=== PATIENT | female | born 1995 | race African-American/Black ===

== ENCOUNTER 2019-01-31 17:21 | Emergency (ER) | payer BC ==
[~2019-01-31] VITALS: Ht 162.6 cm; Wt 113.4 kg
[2019-01-31 17:59] LABS: BILIRUBIN,URINE NEGATIVE (NEG); CLARITY,URINE CLEAR; COLOR,URINE YELLOW; NITRITE,URINE NEGATIVE (NEG); PROTEIN,URINE NEGATIVE (NEG-TRACE)
[2019-01-31] MEDS ORDERED: IV NORMAL SALINE 1000ML BAG 1,000 ML IV SCH (18:00)
[2019-01-31 18:05] LABS: SQUAMOUS EPITHELIAL CELL,UR MANY /LPF
[2019-01-31 18:06] LABS: BACTERIA,URINE MANY /HPF (0-FEW); RBC,URINE OCC /HPF (0-2); WBC,URINE 20-40 /HPF (0-4)
--- NOTE | 2019-01-31 18:10 | PHYS DOC ---
Past Medical History Past Medical History: No Pertinent History (TRA CORDERO APRN) Past Surgical History: No Surgical History (TRA CORDERO APRN) Additional Information: nonsmoker (TRA CORDERO APRN) Adult General Chief Complaint Chief Complaint: FLANK PAIN HPI HPI Patient is a 23-year-old female who presents with left lower quadrant abdominal pain and ongoing for 3 days. The patient had a similar pain in high school when they told her that her ovary was enlarged. The patient rates her pain as 8 out of 10 and rates it as a pressure. Denies any associated symptoms. Nothing at home has made this pain better or worse. Not taking any medications for the pain at home. (TRA CORDERO APRN) Review of Systems Review of Systems Constitutional: Denies fever or chills [] HENT: Denies nasal congestion or sore throat [] Respiratory: Denies cough or shortness of breath [] Cardiovascular: Denies chest pain or syncope. GI: Denies abdominal pain, nausea, vomiting, bloody stools or diarrhea [] : Denies vaginal bleeding, dysuria, hematuria, or frequency [] Musculoskeletal: Denies back pain or joint pain [] Integument: Denies rash or skin lesions [] Neurologic: Denies headache, focal weakness or sensory changes [] Endocrine: Denies polyuria or polydipsia [] Complete systems were reviewed and found to be within normal limits, except as documented in this note. (TRA CORDERO APRN) Current Medications Current Medications Current Medications Medications (Trade) Dose Ordered Sig/Fiorella Start Time Stop Time Status Last Admin Dose Admin Azithromycin (Zithromax) 1,000 mg 1X ONCE 01/31/19 21:00 01/31/19 21:01 DC 01/31/19 21:01 1,000 MG Ceftriaxone Sodium (Rocephin Im) 250 mg 1X ONCE 01/31/19 21:00 01/31/19 21:01 DC 01/31/19 21:03 250 MG Morphine Sulfate (Morphine Sulfate) 4 mg 1X ONCE 01/31/19 18:15 01/31/19 18:16 DC 01/31/19 18:41 4 MG Ondansetron HCl (Zofran) 4 mg 1X ONCE 01/31/19 18:15 01/31/19 18:16 DC 01/31/19 18:40 4 MG Sodium Chloride 1,000 ml @ 1,000 mls/hr Q1H 01/31/19 18:00 01/31/19 18:59 DC 01/31/19 18:40 1,000 MLS/HR (TRA CONTRERAS DO) Allergies Allergies Allergies Coded Allergies Type Severity Reaction Last Updated Verified No Known Drug Allergies 01/31/19 No (TRA CONTRERAS DO) Physical Exam Physical Exam Constitutional: Well developed, well nourished, no acute distress, non-toxic appearance. [] HENT: Normocephalic, atraumatic, oropharynx moist, no oral exudates, nose normal. [] Eyes: PERRLA, EOMI, conjunctiva normal, no discharge. [] Neck: No tenderness, supple, no stridor. [] Cardiovascular:Heart rate regular rhythm, no murmur [] Lungs & Thorax: Bilateral breath sounds clear to auscultation [] Abdomen: Bowel sounds normal, soft, Tenderness to LLQ, no masses, no pulsatile masses. [] Skin: Warm, dry, no erythema, no rash. [] Back: No tenderness, no CVA tenderness. [] Extremities: No tenderness, no cyanosis, no clubbing, ROM intact, no edema. [] Neurologic: Alert and oriented X 3, normal motor function, normal sensory function, no focal deficits noted. [] Psychologic: Affect normal, judgement normal, mood normal. [] (TRA CORDERO APRN) Current Patient Data Vital Signs Vital Signs Date Time Temp Pulse Resp B/P (MAP) Pulse Ox O2 Delivery O2 Flow Rate FiO2 01/31/19 19:39 94 16 138/62 (87) 98 Room Air 01/31/19 17:25 98.5 98.5 (TRA CONTRERAS DO) Lab Values Laboratory Tests Test 01/31/19 17:20 01/31/19 17:34 01/31/19 18:35 Urine Collection Type Unknown Urine Color Yellow Urine Clarity Clear Urine pH 7.0 Urine Specific Buna >=1.030 Urine Protein Negative mg/dL (NEG-TRACE) Urine Glucose (UA) Negative mg/dL (NEG) Urine Ketones (Stick) Trace mg/dL (NEG) Urine Blood Negative (NEG) Urine Nitrite Negative (NEG) Urine Bilirubin Negative (NEG) Urine Urobilinogen Dipstick 1.0 mg/dL (0.2 mg/dL) Urine Leukocyte Esterase Moderate (NEG) Urine RBC Occ /HPF (0-2) Urine WBC 20-40 /HPF (0-4) Urine Squamous Epithelial Cells Many /LPF Urine Bacteria Many /HPF (0-FEW) Urine Mucus Marked /LPF POC Urine HCG, Qualitative Hcg negative (Negative) White Blood Count 10.2 x10^3/uL (4.0-11.0) Red Blood Count 5.49 x10^6/uL (3.50-5.40) H Hemoglobin 12.7 g/dL (12.0-15.5) Hematocrit 39.2 % (36.0-47.0) Mean Corpuscular Volume 71 fL (79-100) L Mean Corpuscular Hemoglobin 23 pg (25-35) L Mean Corpuscular Hemoglobin Concent 32 g/dL (31-37) Red Cell Distribution Width 15.3 % (11.5-14.5) H Platelet Count 274 x10^3/uL (140-400) Neutrophils (%) (Auto) 65 % (31-73) Lymphocytes (%) (Auto) 25 % (24-48) Monocytes (%) (Auto) 9 % (0-9) Eosinophils (%) (Auto) 2 % (0-3) Basophils (%) (Auto) 0 % (0-3) Neutrophils # (Auto) 6.6 x10^3uL (1.8-7.7) Lymphocytes # (Auto) 2.5 x10^3/uL (1.0-4.8) Monocytes # (Auto) 0.9 x10^3/uL (0.0-1.1) Eosinophils # (Auto) 0.2 x10^3/uL (0.0-0.7) Basophils # (Auto) 0.0 x10^3/uL (0.0-0.2) Platelet Estimate Adequate (ADEQUATE) Hypochromasia Slight Microcytosis Slight Sodium Level 138 mmol/L (136-145) Potassium Level 4.0 mmol/L (3.5-5.1) Chloride Level 102 mmol/L (98-107) Carbon Dioxide Level 26 mmol/L (21-32) Anion Gap 10 (6-14) Blood Urea Nitrogen 12 mg/dL (7-20) Creatinine 0.8 mg/dL (0.6-1.0) Estimated GFR (Cockcroft-Gault) 106.6 BUN/Creatinine Ratio 15 (6-20) Glucose Level 92 mg/dL (70-99) Calcium Level 9.3 mg/dL (8.5-10.1) Total Bilirubin 0.2 mg/dL (0.2-1.0) Aspartate Amino Transferase (AST) 16 U/L (15-37) Alanine Aminotransferase (ALT) 21 U/L (14-59) Alkaline Phosphatase 76 U/L (46-116) Total Protein 7.0 g/dL (6.4-8.2) Albumin 3.5 g/dL (3.4-5.0) Albumin/Globulin Ratio 1.0 (1.0-1.7) Lipase 158 U/L (73-393) Laboratory Tests 01/31/19 18:35 Laboratory Tests 01/31/19 18:35 Microbiology 01/31/19 Wet Prep - Final, Complete (TRA CONTRERAS DO) EKG EKG [] (TRA CORDERO APRN) Radiology/Procedures Radiology/Procedures []PATIENT: SONIA COMBSOUNT: [id number]#: [id number] : 1995 LOCATION: ER AGE: 23 SEX: F EXAM STATUS: REG ER ORD. PHYSICIAN: TRA CORDERO APRN REASON: r/o ovarian torsion PROCEDURE: PELVIS COMPLETE Pelvic ultrasound: Reason for examination: Left pelvic pain. Evaluate for ovarian torsion. Transvaginal ultrasound examination was performed. Examination is compromised by patient's large body habitus. Uterus measures 7.6 x 5.2 x 3.8 cm in greatest dimension and shows no uterine masses. Endometrium is not abnormally thickened at 1.2 cm. Nabothian cysts are seen in the cervix. The right ovary measures 4.2 x 2.6 x 2.2 cm in greatest dimension and shows a couple of small follicles and good vascular flow. The left ovary measures approximately 4.2 x 2.6 x 2.5 cm in greatest dimension and shows good vascular flow. There appears to be 3.6 x 2.7 cm cystic-appearing lesion in the left ovary. No free fluid is seen in the pelvic cul-de-sac. IMPRESSION: Nabothian cysts in the cervix. 3.6 cm cystic-appearing lesion in the left ovary. Electronically signed by: Nadia Ch MD (01/31/2019 7:55 PM) [facility] DICTATED and SIGNED BY: NADIA CH MD DATE: 01/31/191954 Performed pelvic exam on patient: Pelvic Exam: External exam is normal and without rash, No CMT, OS is closed, No discharge, uterus NTTP, No adnexal masses. Moderate tenderness noted. (TRA CORDERO APRN) Course & Med Decision Making Course & Med Decision Making Pertinent Labs and Imaging studies reviewed. (See chart for details) []17:45: Discussed with patient her symptoms. The patient has no rovsing's sign. Will evaluate with an pelvic ultrasound, pelvic exam and evaluate lab work, and urinalysis. Will also give fluids and supportive medication. Patient agrees to plan of care. 19:40: Discussed with patient her ultrasound came back with a cyst that is likely contributing to her pain. Will have her follow up with [employer]. Patient was concerned about STD's because of a sexual encounter that she had several years ago (the last time that she had sex). Ordered and sent tests. BV came back positive. Will treat prophylactically for GC/Chlamydia. Will also treat for UTI. Patient is agreeable to plan. (TRA CORDERO APRN) Dragon Disclaimer Dragon Disclaimer This electronic medical record was generated, in whole or in part, using a voice recognition dictation system. (TRA CORDERO APRN) Departure Departure Impression: Primary Impression: Urinary tract infection Additional Impressions: Nabothian cyst Bacterial vaginosis Disposition: 01 HOME, SELF-CARE Condition: STABLE Referrals: DENISSE BARAKAT MD Patient Instructions: Bacterial Vaginosis, [id number], Urinary Tract Infection, [id number] Additional Instructions: Please follow up with [facility] [facility] in regard to the Cysts. Take all of your antibiotics. If symptoms worsen return to ER. Scripts Cephalexin (KEFLEX) 500 Mg Capsule 1 CAP PO BID for 7 Days, #14 CAP Prov: TRA CORDERO APRN 01/31/19 Naproxen (NAPROXEN) 500 Mg Tablet 1 TAB PO BID, #30 TAB 0 Refills Prov: TRA CORDERO APRN 01/31/19 Metronidazole (FLAGYL) 500 Mg Tablet 1 TAB PO BID, #14 TAB Please do not use Alcohol with this medication while taking and 3 days afterwards. Prov: TRA CORDERO APRN 01/31/19 Attending Signature Attending Signature I have reviewed the PA/ICT ACCOUNT MANAGER's note and plan of care. I was available for consultation as needed during the patient's visit in the emergency department. I agree with the clinical impression, plan, and disposition. (TRA CONTRERAS DO) Problem Qualifiers Primary Impression: Urinary tract infection Urinary tract infection type: acute cystitis Hematuria presence: without hematuria Qualified Codes: N30.00 - Acute cystitis without hematuria TRA CORDERO APRN Jan 31, 2019 18:09 TRA CONTRERAS DO Feb 01, 2019 05:50
[2019-01-31] MEDS ORDERED: ONDANSETRON PF 4 MG/2 ML VIAL. IV ONE (18:15)
[2019-01-31] MEDS ORDERED: MORPHINE SULFATE 4 MG/ML VIAL. IV ONE (18:15)
[2019-01-31 18:43] LABS: BASO % 0 % (0-3); EOS # 0.2 x10^3/uL (0.0-0.7); EOS % 2 % (0-3); HEMATOCRIT 39.2 % (36.0-47.0); HEMOGLOBIN 12.7 g/dL (12.0-15.5); LYMPH # 2.5 x10^3/uL (1.0-4.8); LYMPH % 25 % (24-48); MEAN CORPUSCULAR HEMOGLOBIN 23 pg (25-35); MEAN CORPUSCULAR HGB CONC 32 g/dL (31-37); MEAN CORPUSCULAR VOLUME 71 fL (79-100); MONO # 0.9 x10^3/uL (0.0-1.1); MONO % 9 % (0-9); NEUT # 6.6 x10^3uL (1.8-7.7); NEUT % 65 % (31-73); PLATELET COUNT 274 x10^3/uL (140-400); RED BLOOD COUNT 5.49 x10^6/uL (3.50-5.40); RED CELL DISTRIBUTION WIDTH 15.3 % (11.5-14.5); WHITE BLOOD COUNT 10.2 x10^3/uL (4.0-11.0)
[2019-01-31 19:04] LABS: CALCIUM 9.3 mg/dL (8.5-10.1); CREATININE 0.8 mg/dL (0.6-1.0); GFR 106.6
[2019-01-31 19:09] LABS: HYPOCHROMIA SLIGHT; MICROCYTOSIS SLIGHT; PLT ESTIMATE ADEQUATE (ADEQUATE)
[2019-01-31 19:12] LABS: ALBUMIN 3.5 g/dL (3.4-5.0); TOTAL BILIRUBIN 0.2 mg/dL (0.2-1.0)
[2019-01-31 19:39] VITALS: BP 138/62
--- NOTE | 2019-01-31 19:57 | RAD ---
Pelvic ultrasound: Reason for examination: Left pelvic pain. Evaluate for ovarian torsion. Transvaginal ultrasound examination was performed. Examination is compromised by patient's large body habitus. Uterus measures 7.6 x 5.2 x 3.8 cm in greatest dimension and shows no uterine masses. Endometrium is not abnormally thickened at 1.2 cm. Nabothian cysts are seen in the cervix. The right ovary measures 4.2 x 2.6 x 2.2 cm in greatest dimension and shows a couple of small follicles and good vascular flow. The left ovary measures approximately 4.2 x 2.6 x 2.5 cm in greatest dimension and shows good vascular flow. There appears to be 3.6 x 2.7 cm cystic-appearing lesion in the left ovary. No free fluid is seen in the pelvic cul-de-sac. IMPRESSION: Nabothian cysts in the cervix. 3.6 cm cystic-appearing lesion in the left ovary. Electronically signed by: Nadia Cooley MD (01/31/2019 7:55 PM) [facility]
[2019-01-31] MEDS ORDERED: NAPR-514 PO (20:36)
[2019-01-31] MEDS ORDERED: CEPH-264 PO (20:36)
[2019-01-31] MEDS ORDERED: METR500T PO (20:36)
[2019-01-31] MEDS ORDERED: cefTRIAXone IM 250 MG VIAL IM ONE (21:00)
[2019-01-31] MEDS ORDERED: AZITHROMYCIN 250 MG TABLET. PO ONE (21:00)
[2019-02-02 13:49] LABS: GC PROBE Negative (Negative)
== END 2019-01-31 21:06 | disposition home or self-care (01) ==
LOC: ER 17:21
DX: N88.8 Other specified noninflammatory disorders of cervix uteri (principal); N30.00 Acute cystitis without hematuria; N76.0 Acute vaginitis; B96.89 Other specified bacterial agents as the cause of diseases classified elsewhere
CPT/HCPCS: 36415; 76856; 80053; 81001; 81025; 83690; 85025; 87491; 87591; 96372; 96374; 96375; 99285; J0696; J2270; J2405; J7030; Q0111; Q0144